=== PATIENT | male | born 1995 | race Caucasian/White ===

== ENCOUNTER 2024-04-29 09:45 | Emergency (ER) | payer OTHER, SELFPAY ==
--- NOTE | ~2024-04-29 | XR_ITS ---
EXAMINATION: XR toe 1st LT min 2V DATE: 04/29/2024 10:50 INDICATION: Nail puncture wound at the distal tip of the left great toe TECHNIQUE: Dorsal plantar, lateral and oblique views of the left great toe were obtained. COMPARISON: None FINDINGS: Hallux valgus. Alignment is otherwise normal. No fracture. Joint spaces are normal. No evident soft t issue gas or radiopaque foreign bodies. IMPRESSION: Hallux valgus. Otherwise unremarkable left great toe radiographs. Reviewed, dictated and finalized at location A. X RAY NURSE
[2024-04-29 10:09] VITALS: BP 139/89; PULSE 83; RESP 15; TEMP 36.5; O2SAT 99
--- NOTE | 2024-04-29 10:36 | ED.WOUNDLAC ---
HPI - Wound/Laceration General Chief Complaint: Wound/Laceration Stated Complaint: nail in toe yesterday Time Seen by Provider: 04/29/24 10:29 Source: patient Mode of arrival: ambulatory History of Present Illness HPI narrative: 28 YEARS OLD WHITE MALE CAME TO THE ED BY PRIVATE CAR COMPLAINING OF ACCIDENTAL PUNCTURE NAIL WOUND WENT THROUGH THE SHOES AND SOCKS TO THE LEFT BIG TOE YESTERDAY WHILE WORKING ON HIS HOUSE. HE DENIES OTHER INJURIES, UNKNOWN LAST TETANUS SHOT. Related Data Allergies Allergy/AdvReac Type Severity Reaction Status Date / Time azithromycin Allergy Mild Rash Verified 04/29/24 10:12 Review of Systems Review of Systems: All systems reviewed & are unremarkable except as noted in HPI and below PMFSH Past Medical History Medical History Hair loss Mild intermittent asthma Social History Social History Smoking status: Never smoker Alcohol intake: current Drinks per week: 3 Substance use: never Exam Narrative: GENERAL APPEARANCE: WELL-DEVELOPED, WELL-NOURISHED SKIN: NORMAL COLOR HEAD: NORMOCEPHALIC, NONTRAUMATIC CHEST AND RESPIRATORY: AIRWAY PATENT, NO RESPIRATORY DISTRESS, NO ACCESSORY MUSCLE USE HEART: REGULAR RATE/RHYTHM VASCULAR: NORMAL PERIPHERAL PULSES, NORMAL CAPILLARY REFILL. MUSCULOSKELETAL: LEFT BIG TOE EXAM SHOWED A PUNCTURE WOUND AT THE TIP OF THE TOE, SURROUNDED BY ERYTHEMA, SEVERE TENDERNESS, NO DISCHARGE, NO DEFORMITY NEUROLOGIC: ALERT AND ORIENTED ?3, Course Vital Signs Vital signs: Vital Signs Temperature 36.5 C 04/29/24 10:09 Pulse Rate 83 04/29/24 10:09 Respiratory Rate 15 04/29/24 10:09 Blood Pressure 139/89 04/29/24 10:09 Pulse Oximetry 99 04/29/24 10:09 Oxygen Delivery Room Air 04/29/24 10:09 Temperature 36.5 C 04/29/24 10:09 Pulse Rate 83 04/29/24 10:09 Respiratory Rate 15 04/29/24 10:09 Blood Pressure 139/89 04/29/24 10:09 Pulse Oximetry 99 04/29/24 10:09 Oxygen Delivery Room Air 04/29/24 10:09 MDM - Wound/Laceration MDM Narrative Medical decision making narrative: NAIL PUNCTURE WOUND TO THE FOOT, THROUGH LEATHER SHOES. X-RAY SHOWED NO ACUTE ABNORMALITIES, PATIENT RECEIVED A TETANUS SHOT, DISCHARGED ON CIPRO AND FOLLOW-UP WITH INSPECTION SUPERVISOR IF THERE IS NO IMPROVEMENT IN THE NEXT 5-7 DAYS. Differential Diagnosis Differential diagnosis: Likely other (PUNCTURE WOUND, RETAINED FOREIGN BODY, BONE FRACTURE) Imaging Data Radiologist's impression: Impressions Toe X-Ray 04/29/24 11:02 IMPRESSION: Hallux valgus. Otherwise unremarkable left great toe radiographs. Critical Care Time Critical Care Time Critical Care Time: No Discharge Plan Discharge Clinical Impression: Puncture wound of foot, left Patient Disposition: Home, Self-Care Condition: Stable Instructions: Antibiotic Form, Puncture Wound (ED) Additional Instructions: RETURN IF SYMPTOMS ARE WORSENING , CALL YOUR FAMILY PHYSICIAN/INSPECTION SUPERVISOR FOR APPOINTMENT, TAKE TYLENOL NEEDED FOR ACHES AND PAIN, CONTINUE HOME MEDICATIONS. Prescriptions: New ciprofloxacin HCl [Cipro] 500 mg tablet 500 mg PO Q12H Qty: 20 0RF Follow-up/Referrals: Matias Hong MD [Primary Care Provider] - Daniel Ridley Jr., JAVON [Physician] - 05/01/24
[2024-04-29] MEDS: TETANUS,DIPHTHERIA,AC PERTUSSIS ADULT (0.5 ML) BOOSTRIX IM (10:42)
[2024-04-29 11:18] VITALS: BP 135/82; PULSE 84; RESP 15; TEMP 36.5; O2SAT 100
== END 2024-04-29 11:22 | disposition home or self-care (01) ==
PROVIDERS: Emergency Provider Emergency Medicine; PCP Family Medicine
DX: S91.132A Puncture wound without foreign body of left great toe without damage to nail, initial encounter (principal); Z23 Encounter for immunization; M20.12 Hallux valgus (acquired), left foot; W45.0XXA Nail entering through skin, initial encounter
CPT/HCPCS: 73660; 90471; 90715; 99283